=== PATIENT | male | born 1965 | race American Indian/Alaskan Native ===

== ENCOUNTER 2018-03-23 11:36 | Emergency (ER) | payer OTHER ==
[2018-03-23 11:56] VITALS: RESP 18; TEMP 98.6; BMI 49.4
--- NOTE | 2018-03-23 12:13 | ED PDOC ---
Arrival/HPI - General Chief Complaint: ENT Problem Time Seen by Provider: 03/23/18 11:49 Historian: Patient - History of Present Illness Narrative History of Present Illness (Text): 03/23/18 12:12 A 52 year old male presents to the emergency room for GI evaluation, had a piece of food stuck in his esophagus. Patient works at [employer], as a tech. Reports at work last night he was eating a hamburger and a piece of hamburger was stuck in his esophagus. Patient went to emergency room there and was given IV Glucagon, was able to pass hamburger. Patient was advised to come to the emergency department for GI f/u. Patient is able to drink water, eat apple sauce. Patient is not in any respiratory distress. Denies any other complaints at this time. Symptom Onset: Sudden Symptom Course: Improving Activities at Onset: Rest Context: Work Associated Symptoms (Text): 03/23/18 12:15 Able to drink and eat applesauce today, but still not right. Past Medical History - Provider Review Nursing Documentation Reviewed: Yes - Cardiac Hx Cardiac Disorders: No - Pulmonary Hx Respiratory Disorders: No - Neurological Hx Neurological Disorder: No - HEENT Hx HEENT Disorder: No - Renal Hx Renal Disorder: No - Endocrine/Metabolic Hx Endocrine Disorders: Yes Hx Diabetes Mellitus Type 2: Yes - Hematological/Oncological Hx Blood Disorders: No - Integumentary Hx Dermatological Disorder: No - Musculoskeletal/Rheumatological Hx Musculoskeletal Disorders: No - Gastrointestinal Hx Gastrointestinal Disorders: No - Genitourinary/Gynecological Hx Genitourinary Disorders: No - Psychiatric Hx Psychophysiologic Disorder: No Hx Substance Use: No Family/Social History - Physician Review Nursing Documentation Reviewed: Yes Family/Social History: No Known Family HX Smoking Status: Never Smoked Hx Alcohol Use: No Hx Substance Use: No Allergies/Home Meds Allergies/Adverse Reactions: Allergies No Known Allergies Allergy (Verified 03/23/18 11:53) Home Medications: Home Meds Medication Instructions Recorded Confirmed No Known Home Med 03/23/18 03/23/18 Review of Systems - Physician Review All systems were reviewed & negative as marked: Yes - Review of Systems Constitutional: absent: Fevers Gastrointestinal: absent: Abdominal Pain Physical Exam Vital Signs Reviewed: Yes Vital Signs Temp Pulse Resp BP Pulse Ox 03/23/18 11:54 98.6 F 86 18 152/84 H 96 Temperature: Afebrile Blood Pressure: Hypertensive Pulse: Regular Respiratory Rate: Normal Appearance: Positive for: Comfortable, Other (obese) Pain Distress: None Mental Status: Positive for: Alert and Oriented X 3 - Systems Exam Head: Present: Atraumatic, Normocephalic Pupils: Present: PERRL Extroacular Muscles: Present: EOMI Conjunctiva: Present: Normal Mouth: Present: Moist Mucous Membranes Pharnyx: No: ERYTHEMA, EXUDATE, TONSILS ENLARGED Neck: Present: Normal Range of Motion Respiratory/Chest: Present: Clear to Auscultation, Good Air Exchange. No: Respiratory Distress, Accessory Muscle Use Cardiovascular: Present: Regular Rate and Rhythm, Normal S1, S2. No: Murmurs Abdomen: No: Tenderness, Distention, Peritoneal Signs Back: Present: Normal Inspection Upper Extremity: Present: Normal Inspection. No: Cyanosis, Edema Lower Extremity: Present: Normal Inspection. No: Edema Neurological: Present: GCS=15, CN II-XII Intact, Speech Normal Skin: Present: Warm, Dry, Normal Color. No: Rashes Psychiatric: Present: Alert, Oriented x 3, Normal Insight, Normal Concentration Medical Decision Making ED Course and Treatment: 03/23/18 12:11 Impression: A 52 year old male for GI evaluation, had a piece of hamburger stuck in esophagus, able to pass hamburger. Plan: -- Reassess and disposition Progress Notes: - Scribe Statement The provider has reviewed the documentation as recorded by the Scribe Maureen Martinez All medical record entries made by the Scribe were at my direction and personally dictated by me. I have reviewed the chart and agree that the record accurately reflects my personal performance of the history, physical exam, medical decision making, and the department course for this patient. I have also personally directed, reviewed, and agree with the discharge instructions and disposition. Disposition/Present on Arrival - Present on Arrival Any Indicators Present on Arrival: No History of DVT/PE: No History of Uncontrolled Diabetes: No Urinary Catheter: No History of Decub. Ulcer: No History Surgical Site Infection Following: None - Disposition Have Diagnosis and Disposition been Completed?: Yes Diagnosis: Esophageal foreign body Disposition: HOME/ ROUTINE Disposition Time: 12:17 Patient Plan: Discharge Condition: GOOD Discharge Instructions (ExitCare): Foreign Body, Swallowed, Adult Additional Instructions: Soft diet. Follow up with GI. Referrals: Delta Tinoco MD [Staff Provider] - Follow up with primary Forms: [employer] ([place]an)
[2018-03-23 12:26] VITALS: BP 128/78; PULSE 78; O2SAT 98
== END 2018-03-23 12:38 | disposition home or self-care (01) ==
LOC: ED 11:36
DX: T18.128A Food in esophagus causing other injury, initial encounter (principal); X58.XXXA Exposure to other specified factors, initial encounter; E11.9 Type 2 diabetes mellitus without complications